=== PATIENT | female | born 1995 | race Caucasian/White ===

== ENCOUNTER 2017-03-20 17:58 | Emergency (ER) | payer OTHER ==
[2017-03-20] MEDS ORDERED: Ibuprofen 600 MG TAB ONE (19:41)
--- NOTE | 2017-03-20 19:52 | RAD ---
FOUR VIEWS RIGHT KNEE: Date: 03-20-17 History: Patient was riding a horse that was too close to a tree. Patient has injured knee after kne e hit the tree. FINDINGS/IMPRESSION: There is no fracture, dislocation, or other osseous abnormality involving the right knee. POS: [facility]
== END 2017-03-20 19:57 | disposition home or self-care (01) ==
LOC: SCSER 17:58
DX: S80.01XA Contusion of right knee, initial encounter (principal); W22.8XXA Striking against or struck by other objects, initial encounter; Y93.52 Activity, horseback riding